=== PATIENT | female | born 1990 | race American Indian/Alaskan Native ===

== ENCOUNTER 2018-07-20 06:17 | Emergency (ER) | payer OTHER ==
[2018-07-20 06:30] VITALS: BP 122/70
[2018-07-20 06:50] LABS: Bilirubin,Urine NEG (Negative); Blood,Urine NEG (Negative); Color,Urine Yellow (Yellow); Mucus,Urine FEW /HPF; Protein,Urine <15 mg/dL mg/dL (Negative); Urobilinogen,Urine < 2.0 mg/dL (<2.0)
[2018-07-20 06:50] LABS: Basophils % (Auto) 0.5 % (0.0-1.8); Eosinophils # (Auto) 0.3 K/mm3 (0.0-0.4); Eosinophils % (Auto) 6.4 % (0.0-4.3); Hematocrit 34.3 % (30.3-42.9); Hemoglobin 11.5 gm/dl (10.1-14.3); Lymphocytes # (Auto) 1.8 K/mm3 (1.2-5.4); Lymphocytes % (Auto) 45.5 % (13.4-35.0); Mean Corpuscular HGB Conc 34 % (30-34); Mean Corpuscular Volume 90 fl (79-97); Monocytes # (Auto) 0.3 K/mm3 (0.0-0.8); Monocytes % (Auto) 8.1 % (0.0-7.3); Platelet Count 246 K/mm3 (140-440); Red Blood Count 3.84 M/mm3 (3.65-5.03)
[2018-07-20 07:06] LABS: Alanine Aminotransferase 8 units/L (7-56); Albumin 3.8 g/dL (3.9-5); BUN/Creatinine Ratio 24; Blood Urea Nitrogen 17 mg/dL (7-17); Calcium 8.7 mg/dL (8.4-10.2); Hemolysis Index 5
--- NOTE | 2018-07-20 07:37 | Emergency Department Report ---
HPI - General Chief Complaint: Abdominal Pain Time Seen by Provider: 07/20/18 07:12 - HPI HPI: Patient is a 28-year-old -[place] who comes to the ER today complaining of abdominal discomfort after her periods. She is not concerned for STDs. Tejeda donnie, she does have vaginal discharge and irritation. She states that she commonly gets BV and yeast infections. She has no new sexual partners. She has not been in and antibiotics. She has not changed her feminine products. Patient denies dysuria or frequency. She has not seen her WAREHOUSE SUPERVISOR in years. No [id number] feminine products have made her feel better. In fact, she states that they are making her worse. ED Past Medical Hx - Past Medical History Previous Medical History?: No Additional medical history: bv - Surgical History Past Surgical History?: No - Family History Family history: no significant - Social History Smoking Status: Never Smoker Substance Use Type: None - Medications Home Medications: Home Medications Medication Instructions Recorded Confirmed Last Taken Type Fluconazole [Diflucan TAB] 100 mg PO QDAY #2 tablet 07/20/18 Unknown Rx metroNIDAZOLE [Flagyl] 500 mg PO Q12HR #20 tab 07/20/18 Unknown Rx ED Review of Systems ROS: Stated complaint: ABD PAIN Other details as noted in HPI Comment: All other systems reviewed and negative Constitutional: denies: fever Gastrointestinal: denies: abdominal pain, nausea, vomiting, diarrhea, constipation, hematemesis, melena Physical Exam - Physical Exam Vital Signs: Vital Signs 07/20/18 06:21 Temperature 98.3 F Pulse Rate 80 Respiratory 18 Rate Blood Pressure 122/70 O2 Sat by Pulse 97 Oximetry General: - Head Head exam: Present: atraumatic, normocephalic - Eye Eye exam: Present: normal appearance, EOMI. Absent: nystagmus - ENT ENT exam: Present: normal exam, normal orophraynx, mucous membranes moist, normal external ear exam, no lymphadenopathy - Neck Neck exam: Present: normal inspection, full ROM. Absent: tenderness, meningismus - Respiratory Respiratory exam: Present: normal lung sounds bilaterally. Absent: respiratory distress, wheezes, rales, rhonchi, stridor, chest wall tenderness, accessory muscle use, decreased breath sounds, prolonged expiratory - Cardiovascular Cardiovascular Exam: Present: regular rate, normal rhythm, normal heart sounds. Absent: bradycardia, tachycardia, irregular rhythm, systolic murmur, diastolic murmur, rubs, gallop, JVD, edema - GI/Abdominal GI/Abdominal exam: Present: soft, non tender on light and deep palpation. Absent: distended, tenderness, guarding, rebound, rigid, pulsatile mass - Rectal Rectal exam: Present: deferred - Extremities Exam Extremities exam: Present: normal inspection, full ROM, other (2+ pulses noted in the bilateral upper extremities. Bilateral lower extremities with 2+ DP bilateral. Full ROM. Absent: calf tenderness - Back Exam Back exam: Present: normal inspection, full ROM. Absent: tenderness, CVA tenderness (R), CVA tenderness (L), paraspinal tenderness, vertebral tenderness - Neurological Exam Neurological exam: Present: alert, oriented X3, normal gait, other (Extraocular movements intact. Tongue midline. No facial droop. Facial sensation intact to light touch in the V1, V2, V3 distribution bilaterally. 5 and 5 strength in 4 extremities.. Sensation is intact to light touch in 4 extremities.). Absent: motor sensory deficit - Psychiatric Psychiatric exam: normal affect and mood - Skin Skin exam: Present: warm, dry, intact, normal color. Absent: rash ED Course Vital Signs 07/20/18 06:21 Temperature 98.3 F Pulse Rate 80 Respiratory 18 Rate Blood Pressure 122/70 O2 Sat by Pulse 97 Oximetry ED Medical Decision Making - Lab Data Result diagrams: 07/20/18 06:27 07/20/18 06:27 - Medical Decision Making Labs 07/20/18 07/20/18 07/20/18 06:27 06:27 06:27 WBC 4.1 L RBC 3.84 Hgb 11.5 Hct 34.3 MCV 90 MCH 30 MCHC 34 RDW 15.0 Plt Count 246 Lymph % (Auto) 45.5 H [place] % (Auto) 8.1 H Eos % (Auto) 6.4 H Baso % (Auto) 0.5 Lymph # 1.8 [place] # 0.3 Eos # 0.3 Baso # 0.0 Seg Neutrophils % 39.5 L Seg Neutrophils # 1.6 L Sodium 138 Potassium 4.2 Chloride 103.5 Carbon Dioxide 24 Anion Gap 15 BUN 17 Creatinine 0.7 Estimated GFR > 60 BUN/Creatinine Ratio 24 Glucose 100 Calcium 8.7 Total Bilirubin 0.40 AST 15 ALT 8 Alkaline Phosphatase 53 Total Protein 7.4 Albumin 3.8 L Albumin/Globulin Ratio 1.1 HCG, Qual Negative Urine Color Urine Turbidity Urine pH Ur Specific [place] Urine Protein Urine Glucose (UA) Urine Ketones Urine Blood Urine Nitrite Urine Bilirubin Urine Urobilinogen Ur Leukocyte Esterase Urine WBC (Auto) Urine RBC (Auto) U Epithel Cells (Auto) Urine Mucus 07/20/18 06:30 WBC RBC Hgb Hct MCV MCH MCHC RDW Plt Count Lymph % (Auto) [place] % (Auto) Eos % (Auto) Baso % (Auto) Lymph # [place] # Eos # Baso # Seg Neutrophils % Seg Neutrophils # Sodium Potassium Chloride Carbon Dioxide Anion Gap BUN Creatinine Estimated GFR BUN/Creatinine Ratio Glucose Calcium Total Bilirubin AST ALT Alkaline Phosphatase Total Protein Albumin Albumin/Globulin Ratio HCG, Qual Urine Color Yellow Urine Turbidity Clear Urine pH 5.0 Ur Specific [place] 1.028 Urine Protein <15 mg/dl Urine Glucose (UA) Neg Urine Ketones Neg Urine Blood Neg Urine Nitrite Neg Urine Bilirubin Neg Urine Urobilinogen < 2.0 Ur Leukocyte Esterase Tr Urine WBC (Auto) 2.0 Urine RBC (Auto) 1.0 U Epithel Cells (Auto) 11.0 Urine Mucus Few Vital Signs 07/20/18 06:21 Temperature 98.3 F Pulse Rate 80 Respiratory 18 Rate Blood Pressure 122/70 O2 Sat by Pulse 97 Oximetry Vital signs are stable. Afebrile. Labs noted. Urine noted. test ivan penn. Given the patient is not concerned about STDs will treat her for BV and yeast. She will follow-up with an WAREHOUSE SUPERVISOR for which she will be referred to. Critical care attestation.: If time is entered above; I have spent that time in minutes in the direct care of this critically ill patient, excluding procedure time. ED Disposition Clinical Impression: Vaginitis Disposition: DC-01 TO HOME OR SELFCARE Is pt being admited?: No Does the pt Need Aspirin: No Condition: Stable Instructions: Vaginitis (ED) Additional Instructions: DIET TOLERATED MEDS ORDERED TODAY IN ER FOLLOW INSTRUCTIONS ON THE BOTTLE FOLLOW UP PCP WITHIN 48 HOURS TO ENSURE YOU ARE GETTING BETTER ACTIVITY TOLERATED MOTRIN OR TYLENOL FOR PAIN OR FEVER RETURN TO THE ER FOR WORSENING SYMPTOMS NOT RELIEVED BY YOUR MEDICATIONS. Referrals: MARIANELA GASPAR MD [Primary Care Provider] - 3-5 Days SUN SIMMS MD [Staff Physician] - 3-5 Days Time of Disposition: 07:35
== END 2018-07-20 07:41 | disposition home or self-care (01) ==
LOC: ED 06:17
DX: N76.0 Acute vaginitis (principal)
CPT/HCPCS: 36415; 80053; 81001; 84703; 85025; 99283

== ENCOUNTER 2018-07-25 04:29 | Emergency (ER) | payer SELFPAY ==
[2018-07-25 04:37] VITALS: BP 122/71
[2018-07-25 05:13] LABS: Basophils # (Auto) 0.1 K/mm3 (0.0-0.1); Basophils % (Auto) 1.1 % (0.0-1.8); Eosinophils # (Auto) 0.3 K/mm3 (0.0-0.4); Eosinophils % (Auto) 5.7 % (0.0-4.3); Hematocrit 33.9 % (30.3-42.9); Hemoglobin 11.5 gm/dl (10.1-14.3); Lymphocytes % (Auto) 42.2 % (13.4-35.0); Mean Corpuscular HGB Conc 34 % (30-34); Mean Corpuscular Volume 89 fl (79-97); Monocytes # (Auto) 0.4 K/mm3 (0.0-0.8); Platelet Count 221 K/mm3 (140-440); Red Blood Count 3.79 M/mm3 (3.65-5.03)
[2018-07-25 05:14] LABS: Bilirubin,Urine NEG (Negative); Blood,Urine NEG (Negative); Color,Urine Yellow (Yellow); Mucus,Urine FEW /HPF; Protein,Urine <15 mg/dL mg/dL (Negative); Urobilinogen,Urine < 2.0 mg/dL (<2.0)
[2018-07-25 05:35] LABS: Alanine Aminotransferase 9 units/L (7-56); Albumin 3.8 g/dL (3.9-5); BUN/Creatinine Ratio 22; Blood Urea Nitrogen 13 mg/dL (7-17); Calcium 9.2 mg/dL (8.4-10.2); Hemolysis Index 6
--- NOTE | 2018-07-25 06:19 | Emergency Department Report ---
ED N/V/D HPI - General Chief complaint: Nausea/Vomiting/Diarrhea Stated complaint: EMESIS Time Seen by Provider: 07/25/18 05:00 Source: patient Mode of arrival: Ambulatory Limitations: No Limitations - History of Present Illness Initial comments: Patient is a 28-year-old -[place] female with no past medical history who presents to the ED with complaint of acute onset of persistent intermittent nausea and vomiting for the last 2 days. Patient states that she has been taking Flagyl 500 mg twice a day for a recently diagnosed bacterial vaginosis but states that she is not able to keep any of these medications down because of persistent nausea and vomiting. Patient requests a different medication for bacterial vaginosis or a different form of the same medication. Patient denies dizziness, fever, chills, dysuria, urinary frequency and urgency, headache, chest pain, shortness of breath or vaginal bleeding. MD complaint: nausea, vomiting -: Sudden, days(s) (2) Description of Vomiting: food contents, watery Associated Abdominal Pain: No Location: diffuse Radiation: none Severity: moderate Pain Scale: 5 Quality: dull Consistency: intermittent Improves with: none Worsens with: none Context: recent anitbiotic use Associated Symptoms: denies other symptoms. denies: myalgias, cough, di aphoresis, fever/chills, headaches, loss of appetite, malaise, nausea/vomiting - Related Data Previous Rx's Medication Instructions Recorded Last Taken Type Fluconazole [Diflucan TAB] 100 mg PO QDAY #2 tablet 07/20/18 Unknown Rx metroNIDAZOLE [Flagyl] 500 mg PO Q12HR #20 tab 07/20/18 Unknown Rx Ondansetron [Zofran Odt] 4 mg PO Q6HR #15 tab.rapdis 07/25/18 Unknown Rx metroNIDAZOLE [metroNIDAZOLE 70 gm VG QHS #5 gel.w.appl 07/25/18 Unknown Rx VAGINAL 0.75% gel] Allergies Allergy/AdvReac Type Severity Reaction Status Date / Time No Known Allergies Allergy Verified 07/25/18 04:37 ED Review of Systems ROS: Stated complaint: EMESIS Other details as noted in HPI Comment: All other systems reviewed and negative Constitutional: no symptoms reported, see HPI. denies: chills, fever, malaise Eyes: as per HPI. denies: eye pain, eye discharge ENT: as per HPI. denies: ear pain, throat pain, dental pain, hearing loss, epistaxis Respiratory: no symptoms reported, see HPI. denies: shortness of breath, SOB with exertion, SOB at rest Cardiovascular: as per HPI. denies: chest pain, palpitations, dyspnea on ex ertion, edema, syncope, paroxysmal nocturnal dyspnea Endocrine: no symptoms reported, see HPI. denies: flushing, increased hunger, increased thirst, unexplained weight gain Gastrointestinal: as per HPI, nausea, vomiting. denies: abdominal pain, chrissy rrhea, constipation, hematemesis, hematochezia Genitourinary: as per HPI, discharge. denies: urgency, dysuria, abnormal menses, dyspareunia Musculoskeletal: as per HPI. denies: joint swelling, arthralgia Skin: as per HPI. denies: rash, lesions, change in color, change in hair/nails, pruritus Neurological: as per HPI. denies: headache, paresthesias, confusion Psychiatric: as per HPI. denies: auditory hallucinations, visual hallucinations, homicidal thoughts Hematological/Lymphatic: as per HPI ED Past Medical Hx - Past Medical History Previous Medical History?: No Additional medical history: bv - Surgical History Past Surgical History?: No - Social History Smoking Status: Never Smoker Substance Use Type: None - Medications Home Medications: Home Medications Medication Instructions Recorded Confirmed Last Taken Type Fluconazole [Diflucan TAB] 100 mg PO QDAY #2 tablet 07/20/18 Unknown Rx metroNIDAZOLE [Flagyl] 500 mg PO Q12HR #20 tab 07/20/18 Unknown Rx Ondansetron [Zofran Odt] 4 mg PO Q6HR #15 tab.rapdis 07/25/18 Unknown Rx metroNIDAZOLE [metroNIDAZOLE 70 gm VG QHS #5 gel.w.appl 07/25/18 Unknown Rx VAGINAL 0.75% gel] ED Physical Exam - General Limitations: No Limitations General appearance: alert, in no apparent distress - Head Head exam: Present: atraumatic, normocephalic, normal inspection - Eye Eye exam: Present: normal appearance, PERRL, EOMI Pupils: Present: normal accommodation - ENT ENT exam: Present: normal exam, normal orophraynx, mucous membranes moist, TM's normal bilaterally, normal external ear exam - Neck Neck exam: Present: normal inspection, full ROM - Respiratory Respiratory exam: Present: normal lung sounds bilaterally. Absent: respiratory distress, rales, stridor, chest wall tenderness, accessory muscle use, decreased breath sounds - Cardiovascular Cardiovascular Exam: Present: regular rate, normal rhythm, normal heart sounds - GI/Abdominal GI/Abdominal exam: Present: soft, normal bowel sounds. Absent: distended, guarding, rebound, hyperactive bowel sounds, hypoactive bowel sounds, organomegaly, bruit - Rectal Rectal exam: Present: deferred - Extremities Exam Extremities exam: Present: normal inspection, full ROM, normal capillary refill - Back Exam Back exam: Present: normal inspection, full ROM. Absent: tenderness, CVA tenderness (R), CVA tenderness (L), muscle spasm, paraspinal tenderness - Neurological Exam Neurological exam: Present: alert, oriented X3, CN II-XII intact, normal gait, reflexes normal - Psychiatric Psychiatric exam: Present: normal affect - Skin Skin exam: Present: warm, dry, intact, normal color ED Course Vital Signs 07/25/18 04:30 Temperature 97.6 F Pulse Rate 64 Respiratory 18 Rate Blood Pressure 122/71 O2 Sat by Pulse 98 Oximetry - Reevaluation(s) Reevaluation #1: 07/25/18 06:24 Patient is alert and oriented 3 and is not in distress. Lab test results are reviewed and are all unremarkable including urinalysis. Patient was discharged home on medications including antiemetics, and also given a new prescription of metronidazole 0.75% gel to be substituted with the recently prescribed Flagyl 500 mg tablets. Patient advised to follow up with [employer] physician in 3-5 days for reevaluation or return to the ED immediately if symptoms get worse. ED Medical Decision Making - Lab Data Result diagrams: 07/25/18 04:53 07/25/18 04:53 - Medical Decision Making Patient is alert and oriented 3 and is not in distress. Lab test results are reviewed and are all unremarkable including urinalysis. Patient was discharged home on medications including antiemetics, and also given a new prescription of metronidazole 0.75% gel to be substituted with the recently prescribed Flagyl 500 mg tablets. Patient advised to follow up with [employer] physician in 3-5 days for reevaluation or return to the ED immediately if symptoms get worse. - Differential Diagnosis bacterial vaginosis, Nausea and vomiting, viral gastroenteritis Critical care attestation.: If time is entered above; I have spent that time in minutes in the direct care of this critically ill patient, excluding procedure time. ED Disposition Clinical Impression: Nausea and vomiting in adult, Bacterial vaginosis Disposition: TO HOME OR SELFCARE Is pt being admited?: No Does the pt Need Aspirin: No Condition: Stable Instructions: Bacterial Vaginosis (ED), Acute Nausea and Vomiting (ED) Additional Instructions: Take medications as advised, drink plenty of fluids and follow up with your primary care physician as advised. Return to the ED immediately if symptoms get worse. Prescriptions: metroNIDAZOLE [metroNIDAZOLE VAGINAL 0.75% gel] 70 gm VG QHS #5 gel.w.appl Ondansetron [Zofran Odt] 4 mg PO Q6HR #15 tab.rapdis Referrals: MARIANELA GASPAR MD [Primary Care Provider] - 3-5 Days Forms: STI Treatment and Prevention Time of Disposition: 06:19 Print Language: SERBIAN
== END 2018-07-25 06:37 | disposition home or self-care (01) ==
LOC: ED 04:29
DX: N76.0 Acute vaginitis (principal); B96.89 Other specified bacterial agents as the cause of diseases classified elsewhere
CPT/HCPCS: 36415; 80053; 81001; 84703; 85025